=== PATIENT | female | born 1995 | race Caucasian/White ===

== ENCOUNTER 2018-10-03 13:17 | Inpatient (IN) | payer OTHER | END 2018-10-06 12:54 | disposition home or self-care (01) | LOC: YASAS 13:17 → Y3N 17:57 ==

== ENCOUNTER 2019-03-20 16:07 | Inpatient (IN) | payer BC, OTHER ==
[2019-03-20 17:57] VITALS: BMI 28.3
--- NOTE | 2019-03-20 20:26 | HP ---
COWS - Scale Resting Pulse: 1= [place] 81-100 Sweatin=Flushed/Facial Moisture Restless Observation: 5= Unable to Sit Still Pupil Size: 1= Pupils >than Normal Bone or Joint Aches: 1= Mild Discomfort Runny Nose/ Eye Tearin= None GI Upset > 30mins: 0= None Tremor Observation: 0= None Yawning Observation: 1= 1-2x During Session Anxiety or Irritability: 4=Extreme Anxiety Goose Flesh Skin: 0=Smooth Skin COWS Score: 15 CIWA Score Nausea/Vomitin-No Nausea/No Vomiting Muscle Tremors: None Anxiety: 5 Agitation: 5 Paroxysmal Sweats: 3 Orientation: 1-Uncertain about Date Tacttile Disturbances: 0-None Auditory Disturbances: 0-None Visual Disturbances: 0-None Headache: 0-None Present CIWA-Ar Total Score: 14 - Admission Criteria OASAS Guidelines: Admission for Medically Managed Detox: Requires at least one of the followin. CIWA greater than 12 2. Seizures within the past 24 hours 3. Delirium tremens within the past 24 hours 4. Hallucinations within the past 24 hours 5. Acute intervention needed for co occurring medical disorder 6. Acute intervention needed for co occurring psychiatric disorder 7. Severe withdrawal that cannot be handled at a lower level of care (continued vomiting, continued diarrhea, abnormal vital signs) requiring intravenous medication and/or fluids 8. Patient presents the following: CIWA greater than 12 Admission Criteria Met: Admission criteria met Admitting History and Physical - Smoking History Smoking history: Current every day smoker Have you smoked in the past 12 months: Yes Aproximately how many cigarettes per day: 10 - Alcohol/Substance Use Hx Alcohol Use: No Admission ROS [facility] - [facility] Chief Complaint: SEEKING DETOX FROM HEROIN AND XANAX Allergies/Adverse Reactions: Allergies Allergy/AdvReac Type Severity Reaction Status Date / Time No Known Allergies Allergy Verified 03/20/19 17:54 History of Present Illness: 24 Y.O FEMALE W/ XANAX AND HEROIN DEPENDENCE HERE FOR DETOX. CLIENT IS SELF REFERRED. KNOWN TO THE PROGRAM LAST HERE 6 MONTHS AGO. CLIENT REPORTS DAILY USE OF BOTH SUBSTANCES. LAST USE ABOUT 6 HOURS AGO. REPORTS USING 10 BAGS OF HEROIN TODAY, VIA NASAL. DENIES IVDU. STATES 3MG OF KLONOPINS AND A 2 MG XANAX TODAY. HER ADDICTION HAS BEEN SINCE THE AGE OF 22. DENIES HX/O SEIZURES, BLACK OUTS, OVERDOSE. LIVES W/ FAMILY, UNEMPLOYED, DENIES LEGALS. UTOX + MTD. CLIENT STATES TAKE STREET METH AT TIMES Exam Limitations: No Limitations - Ebola screening Have you traveled outside of the country in the last 21 days: No Have you had contact with anyone from an Ebola affected area: No Do you have a fever: No - Review of Systems Constitutional: Chills, Malaise, Night Sweats, Changes in sleep EENT: reports: No Symptoms Reported Respiratory: reports: No Symptoms reported Cardiac: reports: No Symptoms Reported GI: reports: No Symptoms Reported : reports: No Symptoms Reported Musculoskeletal: reports: Joint Pain Integumentary: reports: Flushing, Sweating Neuro: reports: Headache (MIGRAINES) Endocrine: reports: No Symptoms Reported Hematology: reports: No Symptoms Reported Psychiatric: reports: Agitated (IRRITABLE), Anxious Other Systems: Reviewed and Negative Patient History - Patient Medical History Hx Anemia: No Hx Asthma: No Hx Chronic Obstructive Pulmonary Disease (COPD): No Hx Cancer: No Hx Cardiac Disorders: No Hx Congestive Heart Failure: No Hx Hypertension: No Hx Hypercholesterolemia: No Hx Pacemaker: No HX Cerebrovascular Accident: No Hx Seizures: No Hx Dementia: No Hx Diabetes: No Hx Gastrointestinal Disorders: No Hx Liver Disease: No Hx Genitourinary Disorders: No Hx Sexually Transmitted Disorders: No Hx Renal Disease (ESRD): No Hx Thyroid Disease: No Hx Human Immunodeficiency Virus (HIV): No Hx Hepatitis C: No Hx Depression: No Hx Suicide Attempt: No Hx Bipolar Disorder: No Hx Schizophrenia: No Other Medical History: PCOS - Patient Surgical History Past Surgical History: No Hx Neurologic Surgery: No Hx Cataract Extraction: No Hx Cardiac Surgery: No Hx Lung Surgery: No Hx Breast Surgery: No Hx Breast Biopsy: No Hx Abdominal Surgery: No Hx Appendectomy: No Hx Cholecystectomy: No Hx Genitourinary Surgery: No Hx Section: No Hx Orthopedic Surgery: No Anesthesia Reaction: No - PPD History Previous Implant?: Yes Documented Results: Negative w/proof Implanted On Prior [facility] Admission?: Yes Date: 10/05/18 Results: 0MM PPD to be Administered?: No - Reproductive History Patient is a Female of Child Bearing Age (11 -55 yrs old): Yes LMP comment: LMP 2018-AMENORRHEA 2/2 IUD/ PCOS Patient : No [place] [place] [facility] [place] - Smoking Cessation Smoking history: Current every day smoker Have you smoked in the past 12 months: Yes Aproximately how many cigarettes per day: 10 Cigars Per Day: 0 Hx Chewing Tobacco Use: No Initiated information on smoking cessation: Yes 'Breaking Loose' booklet given: 03/20/19 - Substance & Tx. History Hx Alcohol Use: No Hx Substance Use: Yes Substance Use Type: Heroin, Tranquilizers (XANAX/KLONOPINS) Hx Substance Use Treatment: Yes ([facility]) - Substances abused Heroin Substance route: Inhalation Frequency: Daily Amount used: 1 BUNDLE Age of first use: 19 Date of last use: 03/20/19 Alprazolam (Xanax) Substance route: Oral Frequency: Daily Amount used: 6MG Age of first use: 23 Date of last use: 03/20/19 Admission Physical Exam BHS - Vital Signs Vital Signs: Vital Signs - 24 hr 03/20/19 03/20/19 17:54 18:11 Temperature 97.8 F 97.8 F Pulse Rate 91 H 91 H Respiratory 16 16 Rate Blood Pressure 105/68 105/68 - Physical General Appearance: Yes: Moderate Distress, Irritable, Sweating, Anxious HEENTM: Yes: EOMI, Normocephalic, Normal Voice, ISABELLA, Pharynx Normal, Other ( NASAL CONGESTION) Respiratory: Yes: Chest Non-Tender, Lungs Clear, Normal Breath Sounds, No Respiratory Distress, No Accessory Muscle Use Neck: Yes: No masses,lesions,Nodules, Supple, Trachea in good position Breast: Yes: Breasts Symetrical Cardiology: Yes: Regular Rhythm, Regular Rate, S1, S2 Abdominal: Yes: Non Tender, Flat, Increased Bowel Sounds Genitourinary: Yes: Within Normal Limits Musculoskeletal: Yes: Gait Steady, Other (C/O JOINT PAIN) Extremities: Yes: Normal Capillary Refill, Normal Range of Motion, Non-Tender Neurological: Yes: Fully Oriented, Alert, Motor Strength 5/5, Depressed Affect Integumentary: Yes: Warm, Moist Lymphatic: Yes: Within Normal Limits - Diagnostic (1) Opioid dependence with withdrawal Current Visit: Yes Status: Acute (2) Sedative, hypnotic or anxiolytic dependence with withdrawal, uncomplicated Current Visit: Yes Status: Acute (3) Nicotine dependence Current Visit: Yes Status: Chronic Qualifiers: Nicotine product type: cigarettes Substance use status: uncomplicated Qualified Code(s): F17.210 - Nicotine dependence, cigarettes, uncomplicated (4) Substance-induced anxiety disorder Current Visit: Yes Status: Acute (5) IUD contraception Current Visit: Yes Status: Chronic Comment: REPORTED (6) Amenorrhea Current Visit: Yes Status: Chronic Comment: REPORTED Cleared for Admission [facility] - Detox or Rehab [facility] Level of Care: Medically Managed Detox Regimen/Protocol: Methadone/Valium Claeared for Rehab Admission: No Breathalyzer - Breathalyzer Breathalyzer: 0 Urine Drug Screen - Test Device Lot number: [id number] Expiration date: 11/09/20 - Control Is test valid?: Yes - Results Drug screen NEGATIVE: No Urine drug screen results: FEN-Fentanyl, MOP-Opiates, MTD-Methadone, BZO- Benzodiazepines, BUP-Suboxone Inpatient Rehab Admission - Rehab Decision to Admit Inpatient rehab admission?: No
[2019-03-20] MEDS ORDERED: MAGNESIUM HYDROX 2400MG/30ML ORAL SUSPENSION 30 ML CUP PO PRN (20:35)
[2019-03-20] MEDS ORDERED: NALOXONE HCL 0.4 MG/ML VIAL IM PRN (20:35)
[2019-03-20] MEDS ORDERED: MENTHOL/PHENOL 1 EACH UD MM PRN (20:35)
[2019-03-20] MEDS ORDERED: diazePAM 5 MG TABLET PO PRN (20:35)
[2019-03-20] MEDS ORDERED: ONDANSETRON *ODT* 4 MG TABLET SL PRN (20:35)
[2019-03-20] MEDS ORDERED: MELATONIN 5 MG TABLETS PO PRN (20:35)
[2019-03-20] MEDS ORDERED: MAGNESIUM CITRATE 300 ML BOTTLE PO PRN (20:35)
[2019-03-20] MEDS ORDERED: ACETAMINOPHEN 325 MG TABLET (FP) PO PRN ×2 (20:35)
[2019-03-20] MEDS ORDERED: hydrOXYzine PAMOATE 25 MG CAPSULE (FP) PO PRN (20:35)
[2019-03-20] MEDS ORDERED: METHOCARBAMOL 500 MG TABLET PO PRN (20:35)
[2019-03-20] MEDS ORDERED: IBUPROFEN 400 MG TABLET (FP) PO PRN (20:35)
[2019-03-20] MEDS ORDERED: cloNIDine HCL 0.1 MG TABLET PO PRN (20:35)
[2019-03-20] MEDS ORDERED: P-EPHED 60MG/TRIPROLIDI 2.5MG TABLET PO PRN (20:35)
[2019-03-20] MEDS ORDERED: guaiFENesin 200 MG/10 ML 10 ML UNIT-DOSE CUPS PO PRN (20:35)
[2019-03-20] MEDS ORDERED: BISMUTH SUBSALICYLATE 524 MG/30 ML UD PO PRN (20:35)
[2019-03-20] MEDS ORDERED: DICYCLOMINE HCL 10 MG CAPSULE PO PRN (20:35)
[2019-03-20] MEDS ORDERED: MAG HYDROX/AL HYDROX/SIMETH 30 ML UNIT-DOSE CUP PO PRN (20:35)
[2019-03-20] MEDS ORDERED: METHADONE HCL 10 MG TABLET (FOR DETOX USE ONLY) PO ONE (21:45)
[2019-03-20] MEDS: diazePAM 5 MG TABLET PO SCH (22:49)
[2019-03-20] MEDS: THIAMINE HCL 100 MG TABLET (FP) PO SCH (22:49)
[2019-03-21] MEDS: diazePAM 5 MG TABLET PO SCH ×3 (06:04→22:22)
[2019-03-21] MEDS ORDERED: METHADONE HCL 10 MG TABLET (FOR DETOX USE ONLY) ONE (08:56)
[2019-03-21] MEDS ORDERED: METHADONE HCL 5 MG TABLET (FOR DETOX USE ONLY) ONE (08:56)
[2019-03-21] MEDS ORDERED: METHADONE (DETOX) 20 MG, METHADONE (DETOX) 5 MG PO ONE (10:00)
[2019-03-21] MEDS: PRENATAL VITAMINS W/ FOLIC ACID TABLET (FP) PO SCH (10:32)
[2019-03-21] MEDS: NICOTINE 21 MG/24 HOURS TOPICAL PATCH TD SCH (10:34)
[2019-03-21] MEDS: NICOTINE POLACRILEX 2 MG GUM BUC PRN ×2 (10:35→13:29)
[2019-03-21 11:02] LABS: HEMOGLOBIN 12.2 GM/dL (10.7-15.3); MCH 29.4 pg (25.7-33.7); MCHC 32.9 g/dl (32.0-36.0); MEAN CELL VOLUME 89.3 fl (80-96); MEAN PLT VOLUME 8.9 fl (7.5-11.1); PLATELET COUNT 253 K/MM3 (134-434); RBC 4.14 M/mm3 (3.60-5.2); RDW 12.4 % (11.6-15.6)
[2019-03-21 11:29] LABS: ALBUMIN 3.4 g/dl (3.4-5.0); BILIRUBIN,TOTAL 0.3 mg/dL (0.2-1); BLOOD UREA NITROGEN 12.6 mg/dL (7-18); CALCIUM 9.1 mg/dL (8.5-10.1); CREATININE 0.6 mg/dL (0.55-1.3); POTASSIUM 4.3 mmol/L (3.5-5.1); TOT PROT 6.2 g/dl (6.4-8.2)
--- NOTE | 2019-03-21 11:59 | CONSULT ---
[facility] Psychiatric Consult - Data Date of interview: 03/21/19 Admission source: [facility] Identifying data: Patient is approached for psychiatric interview. She refuses. Nursing staff is made aware.
[2019-03-21] MEDS ORDERED: FLU VACCINE QUAD 60 MCG/0.5 ML (MDV 19-20) IM ONE (12:00)
[2019-03-21] MEDS ORDERED: PNEUMOC 13-VAL CONJ-DIP CRM/PF 0.5 ML DISP.SYRIN IM ONE (12:00)
[2019-03-21] MEDS ORDERED: PNEUMOCOCCAL 23 VACCINE 0.5 ML VIAL IM ONE (12:00)
--- NOTE | 2019-03-21 13:41 | PN ---
[facility] CIWA - CIWA Score Nausea/Vomitin-Mild Nausea/No Vomiting Muscle Tremors: 3 Anxiety: 4-Mod. Anxious/Guarded Agitation: 2 Paroxysmal Sweats: 2 Orientation: 0-Oriented Tacttile Disturbances: 0-None Auditory Disturbances: 0-None Visual Disturbances: 0-None Headache: 1-Very Mild CIWA-Ar Total Score: 13 [facility] COWS - Scale Resting Pulse: 0= [place] 80 or Below Sweatin= Chills/Flushing Restless Observation: 0= Sits Still Pupil Size: 1= Pupils >than Normal Bone or Joint Aches: 1= Mild Discomfort Runny Nose/ Eye Tearin= Nasal Congestion GI Upset > 30mins: 2= Nausea/Diarrhea Tremor Observation of Outstretched Hands: 2= Slight Tremor Visible Yawning Observation: 1= 1-2x During Session Anxiety or Irritability: 1=Feels Anxious/Irritable Goose Flesh Skin: 3=Piloerection COWS Score: 13 S Progress Note (SOAP) Subjective: 24 years old female admitted on 03/20/19 for benzo and opiate withdrawal sx management treated with valium and methadone detox regimen drank small amount of juice for breakfast resting on bed feeling tired "I just want to sleep" Objective: 03/21/19 13:39 Vital Signs Temperature 96.2 F L 03/21/19 09:20 Pulse Rate 68 03/21/19 09:20 Respiratory Rate 16 03/21/19 09:20 Blood Pressure 90/60 03/21/19 09:20 O2 Sat by Pulse Oximetry (%) Laboratory Last Values WBC 8.0 K/mm3 (4.0-10.0) 03/21/19 07:50 RBC 4.14 M/mm3 (3.60-5.2) 03/21/19 07:50 Hgb 12.2 GM/dL (10.7-15.3) 03/21/19 07:50 Hct 37.0 % (32.4-45.2) 03/21/19 07:50 MCV 89.3 fl (80-96) 03/21/19 07:50 MCH 29.4 pg (25.7-33.7) 03/21/19 07:50 MCHC 32.9 g/dl (32.0-36.0) 03/21/19 07:50 RDW 12.4 % (11.6-15.6) 03/21/19 07:50 Plt Count 253 K/MM3 (134-434) 03/21/19 07:50 MPV 8.9 fl (7.5-11.1) 03/21/19 07:50 Sodium 140 mmol/L (136-145) 03/21/19 07:50 Potassium 4.3 mmol/L (3.5-5.1) 03/21/19 07:50 Chloride 105 mmol/L (98-107) 03/21/19 07:50 Carbon Dioxide 29 mmol/L (21-32) 03/21/19 07:50 Anion Gap 5 MMOL/L (8-16) L 03/21/19 07:50 BUN 12.6 mg/dL (7-18) 03/21/19 07:50 Creatinine 0.6 mg/dL (0.55-1.3) 03/21/19 07:50 Est GFR (CKD-EPI)AfAm 149.95 03/21/19 07:50 Est GFR (CKD-EPI)NonAf 129.38 03/21/19 07:50 Random Glucose 89 mg/dL (74-106) 03/21/19 07:50 Calcium 9.1 mg/dL (8.5-10.1) 03/21/19 07:50 Total Bilirubin 0.3 mg/dL (0.2-1) 03/21/19 07:50 AST 14 U/L (15-37) L 03/21/19 07:50 ALT 22 U/L (13-61) 03/21/19 07:50 Alkaline Phosphatase 45 U/L (45-117) 03/21/19 07:50 Total Protein 6.2 g/dl (6.4-8.2) L 03/21/19 07:50 Albumin 3.4 g/dl (3.4-5.0) 03/21/19 07:50 HIV 1&2 Antibody Screen Negative 03/21/19 07:50 HIV P24 Antigen Negative 03/21/19 07:50 lab noted Assessment: 03/21/19 13:41 benzo opiate withdrawal sx Plan: valium methadone regimen
[2019-03-21 15:53] LABS: EPI CELLS 6.1 /HPF (0-5/HPF); HYALINE CASTS 9 /lpf (0-8); URINE APPEARANCE CLEAR; URINE BACTERIA 574.4 /hpf (NEGATIVE); URINE BILIRUBIN NEGATIVE (NEGATIVE); URINE COLOR YELLOW; URINE GLUCOSE (UA) NEGATIVE (NEGATIVE); URINE KETONE NEGATIVE (NEGATIVE); URINE LEUK ESTERASE TRACE (NEGATIVE); URINE NITRITE NEGATIVE (NEGATIVE); URINE PROTEIN NEGATIVE (NEGATIVE); URINE RBC 3 /hpf (0-4); URINE UROBILINOGEN 0.2 mg/dL (0.2-1.0); URINE WBC 5 /hpf (0-5)
[2019-03-21] MEDS: THIAMINE HCL 100 MG TABLET (FP) PO SCH (22:22)
[2019-03-22] MEDS: diazePAM 5 MG TABLET PO SCH ×2 (05:10→17:55)
[2019-03-22] MEDS ORDERED: METHADONE HCL 10 MG TABLET (FOR DETOX USE ONLY) PO ONE (10:00)
[2019-03-22] MEDS: PRENATAL VITAMINS W/ FOLIC ACID TABLET (FP) PO SCH (10:37)
[2019-03-22] MEDS: NICOTINE 21 MG/24 HOURS TOPICAL PATCH TD SCH (10:38)
[2019-03-22] MEDS: NICOTINE POLACRILEX 2 MG GUM BUC PRN ×2 (10:38→12:51)
--- NOTE | 2019-03-22 10:42 | EKG ---
Test Reason : Blood Pressure : / mmHG Vent. Rate : 088 BPM Atrial Rate : 088 BPM P-R Int : 142 ms QRS Dur : 088 ms QT Int : 356 ms P-R-T Axes : 053 057 036 degrees QTc Int : 430 ms NORMAL SINUS RHYTHM NORMAL ECG NO PREVIOUS ECGS AVAILABLE Confirmed by LATANYA LEWIS, YARELI ([id number]) on 03/22/2019 10:42:09 AM Referred By: DR MOODY Confirmed By:YARELI PELAEZ MD
--- NOTE | 2019-03-22 11:22 | PN ---
[facility] CIWA - CIWA Score Nausea/Vomitin-Mild Nausea/No Vomiting Muscle Tremors: 3 Anxiety: 2 Agitation: 1-Slight > Activity Paroxysmal Sweats: 2 Orientation: 0-Oriented Tacttile Disturbances: 0-None Auditory Disturbances: 0-None Visual Disturbances: 0-None Headache: 1-Very Mild CIWA-Ar Total Score: 10 BHS COWS - Scale Resting Pulse: 0= [place] 80 or Below Sweatin= Chills/Flushing Restless Observation: 0= Sits Still Pupil Size: 1= Pupils >than Normal Bone or Joint Aches: 1= Mild Discomfort Runny Nose/ Eye Tearin= Nasal Congestion GI Upset > 30mins: 2= Nausea/Diarrhea (no diarrhea) Tremor Observation of Outstretched Hands: 1= Tremor [place], Not Seen Yawning Observation: 1= 1-2x During Session Anxiety or Irritability: 2=Irritable/Anxious Goose Flesh Skin: 0=Smooth Skin COWS Score: 10 [facility] Progress Note (SOAP) Subjective: 24 years old female admitted on 03/20/19 for benzo opiate withdrawal sx management treated with valium and methadone detox regimen feeling hot and cold throughout the night doing ok in the morning ate breakfast discuss aftercare with staff patient prefers suboxone program encourage to carry narcan at all time Objective: 03/22/19 11:21 Vital Signs Temperature 97.8 F 03/22/19 09:20 Pulse Rate 63 03/22/19 09:20 Respiratory Rate 16 03/22/19 09:20 Blood Pressure 96/63 03/22/19 09:20 O2 Sat by Pulse Oximetry (%) Laboratory Last Values WBC 8.0 K/mm3 (4.0-10.0) 03/21/19 07:50 RBC 4.14 M/mm3 (3.60-5.2) 03/21/19 07:50 Hgb 12.2 GM/dL (10.7-15.3) 03/21/19 07:50 Hct 37.0 % (32.4-45.2) 03/21/19 07:50 MCV 89.3 fl (80-96) 03/21/19 07:50 MCH 29.4 pg (25.7-33.7) 03/21/19 07:50 MCHC 32.9 g/dl (32.0-36.0) 03/21/19 07:50 RDW 12.4 % (11.6-15.6) 03/21/19 07:50 Plt Count 253 K/MM3 (134-434) 03/21/19 07:50 MPV 8.9 fl (7.5-11.1) 03/21/19 07:50 Sodium 140 mmol/L (136-145) 03/21/19 07:50 Potassium 4.3 mmol/L (3.5-5.1) 03/21/19 07:50 Chloride 105 mmol/L (98-107) 03/21/19 07:50 Carbon Dioxide 29 mmol/L (21-32) 03/21/19 07:50 Anion Gap 5 MMOL/L (8-16) L 03/21/19 07:50 BUN 12.6 mg/dL (7-18) 03/21/19 07:50 Creatinine 0.6 mg/dL (0.55-1.3) 03/21/19 07:50 Est GFR (CKD-EPI)AfAm 149.95 03/21/19 07:50 Est GFR (CKD-EPI)NonAf 129.38 03/21/19 07:50 Random Glucose 89 mg/dL (74-106) 03/21/19 07:50 Calcium 9.1 mg/dL (8.5-10.1) 03/21/19 07:50 Total Bilirubin 0.3 mg/dL (0.2-1) 03/21/19 07:50 AST 14 U/L (15-37) L 03/21/19 07:50 ALT 22 U/L (13-61) 03/21/19 07:50 Alkaline Phosphatase 45 U/L (45-117) 03/21/19 07:50 Total Protein 6.2 g/dl (6.4-8.2) L 03/21/19 07:50 Albumin 3.4 g/dl (3.4-5.0) 03/21/19 07:50 Urine Color Yellow 03/21/19 13:30 Urine Appearance Clear 03/21/19 13:30 Urine pH 6.0 (5.0-8.0) 03/21/19 13:30 Ur Specific [place] 1.023 (1.010-1.035) 03/21/19 13:30 Urine Protein Negative (NEGATIVE) 03/21/19 13:30 Urine Glucose (UA) Negative (NEGATIVE) 03/21/19 13:30 Urine Ketones Negative (NEGATIVE) 03/21/19 13:30 Urine Blood Negative (NEGATIVE) 03/21/19 13:30 Urine Nitrite Negative (NEGATIVE) 03/21/19 13:30 Urine Bilirubin Negative (NEGATIVE) 03/21/19 13:30 Urine Urobilinogen 0.2 mg/dL (0.2-1.0) 03/21/19 13:30 Ur Leukocyte Esterase Trace (NEGATIVE) 03/21/19 13:30 Urine WBC (Auto) 5 /hpf (0-5) 03/21/19 13:30 Urine RBC (Auto) 3 /hpf (0-4) 03/21/19 13:30 Urine Casts (Auto) 9 /lpf (0-8) 03/21/19 13:30 U Epithel Cells (Auto) 6.1 /HPF (0-5/HPF) 03/21/19 13:30 Urine Bacteria (Auto) 574.4 /hpf (NEGATIVE) 03/21/19 13:30 Hep C Ab Diagnostic <0.1 s/co ratio (0.0-0.9) 03/21/19 07:50 HIV 1&2 Antibody Screen Negative 03/21/19 07:50 HIV P24 Antigen Negative 03/21/19 07:50 lab noted Assessment: 03/22/19 11:22 benzo opiate withdrawal Plan: valium and methadone regimen
[2019-03-22 18:08] VITALS: BP 93/58; PULSE 70; TEMP 99.1
--- NOTE | 2019-03-22 20:42 | DS ---
[facility] Detox Discharge Summary Admission Date: 03/20/19 Discharge Date: 03/22/19 - History Present History: Opioid Dependence, Sedative Dependence Additional Comments: client signed out ama despite all efforts and encouragement to completed txment or at least wait till the morning. Client is not open for discussion. states he mother is ill and she needs to leave. she is a/o x3 nad. denies si/hi. vss - Physical Exam Results Vital Signs: Vital Signs Temperature 99.1 F 03/22/19 18:07 Pulse Rate 70 03/22/19 18:07 Respiratory Rate 16 03/22/19 18:07 Blood Pressure 93/58 L 03/22/19 18:07 O2 Sat by Pulse Oximetry (%) - Treatment Hospital Course: Discharged Condition Good Patient has Accepted a Rehab Referral to: declined - Medication Discharge Medications: Ambulatory Orders Naloxone HCl [Narcan] 4 mg NS ASDIR PRN #1 spray 03/21/19 - Diagnosis (1) Opioid dependence with withdrawal Status: Acute (2) Sedative, hypnotic or anxiolytic dependence with withdrawal, uncomplicated Status: Acute (3) Nicotine dependence Status: Chronic Qualifiers: Nicotine product type: cigarettes Substance use status: uncomplicated Qualified Code(s): F17.210 - Nicotine dependence, cigarettes, uncomplicated (4) Substance-induced anxiety disorder Status: Acute (5) IUD contraception Status: Chronic (6) Amenorrhea Status: Chronic - AMA Did Patient Leave Against Medical Advice: Yes
[2019-03-23] MEDS ORDERED: diazePAM 5 MG TABLET PO ONE (06:00)
[2019-03-23] MEDS ORDERED: METHADONE (DETOX) 10 MG, METHADONE (DETOX) 5 MG PO ONE (10:00)
[2019-03-24] MEDS ORDERED: METHADONE HCL 10 MG TABLET (FOR DETOX USE ONLY) PO ONE (10:00)
[2019-03-25] MEDS ORDERED: METHADONE HCL 5 MG TABLET (FOR DETOX USE ONLY) PO ONE (06:00)
== END 2019-03-22 21:05 | disposition left against medical advice (07) | DRG 894 ==
LOC: YASAS 16:07 → Y3N 21:33
PROVIDERS: ADMIT Allergy & Immunology; ATTEND Allergy & Immunology
PROC: HZ2ZZZZ Detoxification Services for Substance Abuse Treatment (ICD-10-PCS; principal; 2019-03-20)
DX: F11.23 Opioid dependence with withdrawal (principal); F19.280 Other psychoactive substance dependence with psychoactive substance-induced anxiety disorder; F13.230 Sedative, hypnotic or anxiolytic dependence with withdrawal, uncomplicated; F17.210 Nicotine dependence, cigarettes, uncomplicated; N91.2 Amenorrhea, unspecified; E28.2 Polycystic ovarian syndrome; Z97.5 Presence of (intrauterine) contraceptive device
CPT/HCPCS: 36415; 80053; 81003; 85027; 86593; 86803; 87389; 93005; 93010